=== PATIENT | female | born 2000 | race Caucasian/White ===

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

== ENCOUNTER 2019-03-13 10:17 | Emergency (ER) | payer BC, OTHER ==
[~2019-03-13] VITALS: Ht 160 cm; Wt 59.1 kg
[2019-03-13 11:11] VITALS: BP 120/70
== END 2019-03-13 11:50 | disposition home or self-care (01) ==
LOC: EMS 10:20
DX: S03.41XA Sprain of jaw, right side, initial encounter (principal); X58.XXXA Exposure to other specified factors, initial encounter; Y93.89 Activity, other specified; Y92.89 Other specified places as the place of occurrence of the external cause; Y99.8 Other external cause status

== ENCOUNTER 2019-11-12 22:58 | Emergency (ER) | payer OTHER ==
[~2019-11-12] VITALS: Ht 160 cm; Wt 59.1 kg
[2019-11-13 00:34] LABS: BASOPHILS % (AUTO) 0.4 % (0.0-2.0); EOSINOPHILS % (AUTO) 0.2 % (1.0-6.0); HEMATOCRIT 31.7 % (36-46); HEMOGLOBIN 10.7 g/dL (12.0-16.0); LYMPHOCYTES # (AUTO) 1.6 K/uL (1.0-4.8); LYMPHOCYTES % (AUTO) 15.9 % (22.0-44.0); MEAN CORPUSCULAR HEMOGLOBIN 27.9 pg (26.0-34.0); MEAN CORPUSCULAR HGB CONC 33.8 G/dL (31.0-37.0); MEAN CORPUSCULAR VOLUME 83 fL (80-100); MONOCYTES # (AUTO) 0.4 K/uL (0.1-1.0); MONOCYTES % (AUTO) 4.5 % (2.0-9.0); NEUTROPHILS # (AUTO) 7.9 K/uL (1.8-7.7); PLATELET COUNT (AUTO) 306 K/uL (150-450); RED BLOOD CELL COUNT(AUTO) 3.84 MIL/uL (4.00-5.20); RED CELL DISTRIBUTION WIDTH 15.2 % (11.5-14.5)
[2019-11-13 00:44] LABS: ANION GAP 8 mmol/L (8-16); CALCIUM, TOTAL 8.8 mg/dL (8.8-10.5); CARBON DIOXIDE 28 mmol/L (22-29); CHLORIDE 104 mmol/L (98-107); CREATININE 0.68 mg/dL (0.60-1.30); GLOMERULAR FILTR. RATE CALC > 60 mL/min (>60); GLUCOSE,RANDOM 99 mg/dL (70-110); POTASSIUM 4.1 mmol/L (3.5-5.1); SODIUM SERUM 140 mmol/L (136-145); UREA NITROGEN, BLOOD 13 mg/dL (7-18)
[2019-11-13 00:55] LABS: ALANINE AMINOTRANSFERASE 18 U/L (12-78); ALKALINE PHOSPHATASE 59 U/L (46-116); ASPARTATE AMINOTRANSFERASE 13 U/L (15-37); BILIRUBIN,TOTAL 0.1 mg/dL (0.1-1.0); HCG,QUANTITATIVE 467 mIU/mL (0-6); LIPASE 131 U/L (73-393); TOTAL PROTEIN, SERUM 7.9 g/dL (6.4-8.2)
[2019-11-13] MEDS ORDERED: FERR-89 PO (01:15)
[2019-11-13] MEDS ORDERED: MECL25TA39 PO (01:17)
[2019-11-13] MEDS ORDERED: IBUP-2071 PO (01:17)
[2019-11-13] MEDS ORDERED: MISO100T47 PO (01:17)
[2019-11-13 02:20] VITALS: BP 105/65
== END 2019-11-13 02:30 | disposition home or self-care (01) ==
LOC: EMS 22:59
DX: N93.9 Abnormal uterine and vaginal bleeding, unspecified (principal)
CPT/HCPCS: 76830; 76856

== ENCOUNTER 2019-12-08 22:07 | Emergency (ER) | payer OTHER ==
[~2019-12-08] VITALS: Ht 160 cm; Wt 63.6 kg
[~2019-12-08 22:07] MED LIST: FERR-89 PO; IBUP-2071 PO; MECL25TA39 PO; MISO100T47 PO
[2019-12-08 22:59] LABS: BASOPHILS % (AUTO) 0.4 % (0.0-2.0); EOSINOPHILS % (AUTO) 0.9 % (1.0-6.0); HEMATOCRIT 31.9 % (36-46); HEMOGLOBIN 10.2 g/dL (12.0-16.0); LYMPHOCYTES # (AUTO) 2.3 K/uL (1.0-4.8); LYMPHOCYTES % (AUTO) 24.1 % (22.0-44.0); MEAN CORPUSCULAR HEMOGLOBIN 25.8 pg (26.0-34.0); MEAN CORPUSCULAR VOLUME 81 fL (80-100); MONOCYTES # (AUTO) 0.7 K/uL (0.1-1.0); MONOCYTES % (AUTO) 7.8 % (2.0-9.0); NEUTROPHILS # (AUTO) 6.3 K/uL (1.8-7.7); NEUTROPHILS % (AUTO) 66.8 % (40.0-70.0); PLATELET COUNT (AUTO) 321 K/uL (150-450); RED BLOOD CELL COUNT(AUTO) 3.96 MIL/uL (4.00-5.20); RED CELL DISTRIBUTION WIDTH 15.2 % (11.5-14.5)
[2019-12-08 23:09] LABS: ANION GAP 10 mmol/L (8-16); CALCIUM, TOTAL 8.9 mg/dL (8.8-10.5); CARBON DIOXIDE 29 mmol/L (22-29); CHLORIDE 105 mmol/L (98-107); CREATININE 0.88 mg/dL (0.60-1.30); GLOMERULAR FILTR. RATE CALC > 60 mL/min (>60); GLUCOSE,RANDOM 89 mg/dL (70-110); POTASSIUM 4.2 mmol/L (3.5-5.1); SODIUM SERUM 144 mmol/L (136-145); UREA NITROGEN, BLOOD 14 mg/dL (7-18)
[2019-12-08 23:21] LABS: ALANINE AMINOTRANSFERASE 15 U/L (12-78); ALBUMIN 4.2 g/dL (3.4-5.0); ALKALINE PHOSPHATASE 63 U/L (46-116); ASPARTATE AMINOTRANSFERASE 11 U/L (15-37); BILIRUBIN,TOTAL 0.2 mg/dL (0.1-1.0); HCG,QUANTITATIVE 2 mIU/mL (0-6); TOTAL PROTEIN, SERUM 8.3 g/dL (6.4-8.2)
[2019-12-09 02:10] VITALS: BP 105/58
== END 2019-12-09 02:27 | disposition home or self-care (01) ==
LOC: EMS 22:07
DX: D64.9 Anemia, unspecified (principal); R55 Syncope and collapse; F12.90 Cannabis use, unspecified, uncomplicated
CPT/HCPCS: 70450; 72125; 93005; 36415-L1; 36415-TC; 71045-TC

== ENCOUNTER 2021-01-05 17:53 | Emergency (ER) | payer OTHER ==
[~2021-01-05] VITALS: Ht 160 cm; Wt 59.1 kg
[~2021-01-05 17:53] MED LIST changes: +MISO100T42 PO; -MISO100T47 PO
[2021-01-05] MEDS ORDERED: DEXAMETHASONE 4 MG TABLET PO ONE (19:45)
[2021-01-05] MEDS ORDERED: ACETAMINOPHEN 325 MG TABLET PO ONE (19:45)
[2021-01-05] MEDS ORDERED: MAALOX/LIDOCAINE/NYSTATIN SUSP 5 ML ORAL.SYG MM ONE (19:45)
[2021-01-05 19:49] LABS: COVID AG,FIA SOURCE NASOPHARYNGEAL
[2021-01-05 21:05] VITALS: BP 129/74
== END 2021-01-05 21:05 | disposition home or self-care (01) ==
LOC: EMS 17:56
DX: J02.9 Acute pharyngitis, unspecified (principal); R50.9 Fever, unspecified; F12.90 Cannabis use, unspecified, uncomplicated; Z20.822 Contact with and (suspected) exposure to COVID-19
CPT/HCPCS: 87426; 87430; 99284; J8540; 99283

== ENCOUNTER 2022-03-24 15:52 | Emergency (ER) | payer OTHER ==
[~2022-03-24] VITALS: Ht 160 cm; Wt 65.0 kg
[~2022-03-24 15:52] MED LIST changes: -FERR-89 PO; +FERR325T27 PO
[2022-03-24 17:27] LABS: APPEARANCE,URINE CLEAR (CLEAR); BILIRUBIN,URINE NEGATIVE (NEGATIVE); GLUCOSE, URINE (UA) NEGATIVE (NEGATIVE); KETONES,URINE NEGATIVE (NEGATIVE); LEUKOCYTE ESTERASE ,URINE TRACE (NEGATIVE); NITRATE,URINE NEGATIVE (NEGATIVE); OCCULT BLOOD,URINE TRACE (NEGATIVE); PH,URINE 6.5 (5.0-8.0); PROTEIN,URINE NEGATIVE (NEGATIVE); SPECIFIC GRAVITIY, URINE 1.002 (1.003-1.030); UROBILINOGEN,URINE <=1.0 mg/dL (<=1.0)
[2022-03-24 17:51] LABS: BACTERIA,URINE Moderate /HPF (None Seen); SQUAMOUS EPITHELIAL CELL,UR Few /LPF (None Seen)
[2022-03-24] MEDS ORDERED: METR500 PO (19:17)
[2022-03-24 19:48] VITALS: BP 127/83
== END 2022-03-24 19:50 | disposition home or self-care (01) ==
LOC: EMS 15:52
DX: N76.0 Acute vaginitis (principal)
CPT/HCPCS: 81001; 84703; 87086; 87186; 87210; 87491; 87591; 99283

== ENCOUNTER 2023-01-09 17:04 | Emergency (ER) | payer OTHER ==
[~2023-01-09] VITALS: Ht 160 cm; Wt 74.1 kg
[~2023-01-09 17:04] MED LIST changes: +IBUP-1493 PO; -IBUP-2071 PO; +METR500 PO; -MISO100T42 PO; +[UNRECOGNIZED DRUG - CODE] PO
[2023-01-09 17:07] VITALS: BP 103/63; PULSE 91; RESP 15; TEMP 98.5
[2023-01-09 17:24] LABS: APPEARANCE,URINE HAZY (CLEAR); BILIRUBIN,URINE NEGATIVE (NEGATIVE); GLUCOSE, URINE (UA) NEGATIVE (NEGATIVE); KETONES,URINE NEGATIVE (NEGATIVE); LEUKOCYTE ESTERASE ,URINE LARGE (NEGATIVE); NITRATE,URINE NEGATIVE (NEGATIVE); OCCULT BLOOD,URINE MODERATE (NEGATIVE); PROTEIN,URINE TRACE mg/dL (NEGATIVE); SPECIFIC GRAVITIY, URINE 1.031 (1.003-1.030); UROBILINOGEN,URINE <=1.0 mg/dL (<=1.0)
[2023-01-09 17:57] LABS: SQUAMOUS EPITHELIAL CELL,UR Few /LPF (None Seen); WBC,URINE 26-50 /HPF (0-5)
[2023-01-09 17:58] LABS: BACTERIA,URINE Moderate /HPF (None Seen)
== END 2023-01-09 20:11 | disposition home or self-care (01) ==
LOC: EMS 17:06
DX: N39.0 Urinary tract infection, site not specified (principal)
CPT/HCPCS: 81001; 87086; 87186; 99283

== ENCOUNTER 2023-10-10 21:39 | Emergency (ER) | payer OTHER ==
[~2023-10-10] VITALS: Ht 160 cm; Wt 171.4 kg
[~2023-10-10 21:39] MED LIST changes: -FERR325T27 PO; -MECL25TA39 PO; -METR500 PO; -[UNRECOGNIZED DRUG - CODE] PO
[2023-10-10 21:53] VITALS: BP 95/48; PULSE 129; RESP 16; TEMP 97.7
[2023-10-10] MEDS: SODIUM CHLORIDE 0.9% 1,000 ML IV ONE (22:18)
[2023-10-10 22:26] LABS: BASOPHILS % (AUTO) 0.4 % (0.0-2.0); EOSINOPHILS % (AUTO) 0.1 % (1.0-6.0); HEMATOCRIT 43.1 % (36-46); HEMOGLOBIN 14.3 g/dL (12.0-16.0); LYMPHOCYTES # (AUTO) 1.6 K/uL (1.0-4.8); LYMPHOCYTES % (AUTO) 13.6 % (22.0-44.0); MEAN CORPUSCULAR HEMOGLOBIN 28.9 pg (26.0-34.0); MEAN CORPUSCULAR HGB CONC 33.2 G/dL (31.0-37.0); MEAN CORPUSCULAR VOLUME 87 fL (80-100); MONOCYTES # (AUTO) 0.6 K/uL (0.1-1.0); MONOCYTES % (AUTO) 4.9 % (2.0-9.0); NEUTROPHILS # (AUTO) 9.6 K/uL (1.8-7.7); PLATELET COUNT (AUTO) 404 K/uL (150-450); RED BLOOD CELL COUNT(AUTO) 4.95 MIL/uL (4.00-5.20); WHITE BLOOD COUNT (AUTO) 11.8 K/uL (4.5-11.0)
[2023-10-10 22:42] LABS: ANION GAP 14 mmol/L (8-16); CALCIUM, TOTAL 9.2 mg/dL (8.8-10.5); CARBON DIOXIDE 23 mmol/L (22-29); CHLORIDE 104 mmol/L (98-107); CREATININE 0.91 mg/dL (0.60-1.30); GLOMERULAR FILTR. RATE CALC > 60 mL/min (>60); GLUCOSE,RANDOM 143 mg/dL (70-110); POTASSIUM 3.5 mmol/L (3.5-5.1); SODIUM SERUM 141 mmol/L (136-145); UREA NITROGEN, BLOOD 8 mg/dL (7-18)
[2023-10-10] MEDS: ONDANSETRON HCL 4 MG/2 ML VIAL IVP ONE (22:48)
[2023-10-10 22:54] LABS: ALANINE AMINOTRANSFERASE 25 U/L (12-78); ALBUMIN 4.7 g/dL (3.4-5.0); ALKALINE PHOSPHATASE 87 U/L (46-116); ASPARTATE AMINOTRANSFERASE 19 U/L (15-37); BILIRUBIN,TOTAL 0.5 mg/dL (0.1-1.0); HCG,QUANTITATIVE < 1 mIU/mL (0-6); LIPASE 24 U/L (16-77); TOTAL PROTEIN, SERUM 9.3 g/dL (6.4-8.2)
[2023-10-11] LABS: ALCOHOL, BLOOD (SERUM) < 3 mg/dL (0-10)
[2023-10-11] MEDS ORDERED: ONDA-104 PO (00:05)
== END 2023-10-11 00:57 | disposition home or self-care (01) ==
LOC: EMS 21:41
DX: F10.129 Alcohol abuse with intoxication, unspecified (principal)
CPT/HCPCS: 99283; 96374; 96361; 80053; 83690; 84702; 85025; 36415; G0480; J2405; J7030

== ENCOUNTER 2024-09-14 15:24 | Emergency (ER) | payer OTHER ==
[~2024-09-14] VITALS: Ht 167.6 cm; Wt 95.5 kg
[~2024-09-14 15:24] MED LIST changes: +ONDA-104 PO
[2024-09-14 15:31] VITALS: TEMP 98.2
[2024-09-14] MEDS: KETOROLAC TROMETHAMINE 30 MG/ML VIAL IM ONE (20:40)
[2024-09-14] MEDS: ACETAMINOPHEN 500 MG TABLET PO ONE (20:40)
[2024-09-14] MEDS: LIDOCAINE 5% TRANSDERMAL PATCH TD ONE (20:40)
[2024-09-14 22:20] VITALS: BP 136/80; PULSE 69; RESP 18; O2SAT 98
[2024-09-14] MEDS ORDERED: LIDO700A15 TP (22:23)
== END 2024-09-14 22:45 | disposition home or self-care (01) ==
LOC: EMS 15:24
DX: M25.561 Pain in right knee (principal)
CPT/HCPCS: 99283; 73562; 96372; J1885

== ENCOUNTER 2024-12-06 16:40 | Emergency (ER) | payer MEDICAID, OTHER ==
[~2024-12-06] VITALS: Ht 160 cm; Wt 86.8 kg
[~2024-12-06 16:40] MED LIST changes: +LIDO-57 TP
[2024-12-06 16:48] VITALS: TEMP 97.9
[2024-12-06] MEDS ORDERED: IBUP-1493 PO (20:31)
[2024-12-06] MEDS: IBUPROFEN 800 MG TABLET PO ONE (20:35)
[2024-12-06 20:45] VITALS: BP 111/67; PULSE 83; RESP 18; O2SAT 99
== END 2024-12-06 20:51 | disposition home or self-care (01) ==
LOC: EMS 16:41
DX: M19.90 Unspecified osteoarthritis, unspecified site (principal)
CPT/HCPCS: 99283

== ENCOUNTER 2025-01-12 13:12 | Emergency (ER) | payer MEDICAID, OTHER ==
[~2025-01-12] VITALS: Ht 160 cm; Wt 86.4 kg
[~2025-01-12 13:12] MED LIST changes: -LIDO-57 TP; -ONDA-104 PO
[2025-01-12 13:16] VITALS: TEMP 98
[2025-01-12] MEDS ORDERED: ETON68IM4 SD (13:19)
[2025-01-12 14:30] LABS: PLATELET COUNT (AUTO) 334 K/uL (150-450); RED BLOOD CELL COUNT(AUTO) 4.43 MIL/uL (4.00-5.20); RED CELL DISTRIBUTION WIDTH 13.5 % (11.5-14.5); WHITE BLOOD COUNT (AUTO) 8.8 K/uL (4.5-11.0)
[2025-01-12 14:37] LABS: CALCIUM, TOTAL 8.6 mg/dL (8.8-10.5); CREATININE 0.67 mg/dL (0.60-1.30); GLOMERULAR FILTR. RATE CALC > 60 mL/min (>60); GLUCOSE,RANDOM 86 mg/dL (70-110); SODIUM SERUM 136 mmol/L (136-145); UREA NITROGEN, BLOOD 12 mg/dL (7-18)
[2025-01-12 14:42] LABS: ASPARTATE AMINOTRANSFERASE 17 U/L (15-37); PREGNANCY RESULT, SERUM NEGATIVE (NEGATIVE); TOTAL PROTEIN, SERUM 7.7 g/dL (6.4-8.2)
[2025-01-12 14:56] LABS: APPEARANCE,URINE CLEAR (CLEAR); GLUCOSE, URINE (UA) NEGATIVE (NEGATIVE); LEUKOCYTE ESTERASE ,URINE TRACE (NEGATIVE); NITRATE,URINE NEGATIVE (NEGATIVE); OCCULT BLOOD,URINE SMALL (NEGATIVE); SPECIFIC GRAVITIY, URINE 1.015 (1.003-1.030)
[2025-01-12 15:00] LABS: SQUAMOUS EPITHELIAL CELL,UR Few /LPF (None Seen)
[2025-01-12] MEDS: CefTRIAXone SODIUM 1 GM/VIAL IM ONE (15:23)
[2025-01-12] MEDS: DOXYCYCLINE HYCLATE 100 MG TABLET PO ONE (15:23)
[2025-01-12] MEDS: LIDOCAINE/PF 1% 2 ML VIAL IM ONE (15:23)
[2025-01-12] MEDS ORDERED: DOXY-354 PO (15:53)
[2025-01-12 16:07] VITALS: BP 125/85; PULSE 95; RESP 18; O2SAT 99
== END 2025-01-12 16:08 | disposition home or self-care (01) ==
LOC: EMS 13:15
DX: N89.8 Other specified noninflammatory disorders of vagina (principal); R30.0 Dysuria; M19.90 Unspecified osteoarthritis, unspecified site; Z29.9 Encounter for prophylactic measures, unspecified; Z79.899 Other long term (current) drug therapy
CPT/HCPCS: 99283; 86592; 80053; 81001; 85025; 87210; 36415; 87491; 87591; 96372; 87389; 84703; J0696; J3490

== ENCOUNTER 2025-05-24 11:13 | Emergency (ER) | payer OTHER ==
[~2025-05-24] VITALS: Ht 160 cm; Wt 81.8 kg
[~2025-05-24 11:13] MED LIST changes: +DOXY-354 PO; +ETON68IM4 SD
[2025-05-24 11:21] VITALS: TEMP 98.4
[2025-05-24 12:32] LABS: APPEARANCE,URINE HAZY (CLEAR); GLUCOSE, URINE (UA) NEGATIVE (NEGATIVE); LEUKOCYTE ESTERASE ,URINE LARGE (NEGATIVE); NITRATE,URINE POSITIVE (NEGATIVE); OCCULT BLOOD,URINE MODERATE (NEGATIVE); SPECIFIC GRAVITIY, URINE 1.028 (1.003-1.030)
[2025-05-24 12:33] LABS: HCG,QUAL URINE NEGATIVE (NEGATIVE)
[2025-05-24 12:46] LABS: SQUAMOUS EPITHELIAL CELL,UR Many /LPF (None Seen)
[2025-05-24 13:15] VITALS: BP 121/80; PULSE 89; RESP 18; O2SAT 100
[2025-05-24] MEDS ORDERED: DOXY-354 PO (13:19)
[2025-05-24] MEDS ORDERED: MICO45CR76 VG (13:19)
[2025-05-24] MEDS ORDERED: CEPH-558 PO (13:35)
[2025-05-24] MEDS: CefTRIAXone SODIUM 1 GM/VIAL IM ONE (13:40)
[2025-05-24] MEDS: LIDOCAINE/PF 1% 2 ML VIAL IM ONE (13:41)
== END 2025-05-24 14:10 | disposition home or self-care (01) ==
LOC: EMS 11:13
DX: N39.0 Urinary tract infection, site not specified (principal); F41.9 Anxiety disorder, unspecified; F12.90 Cannabis use, unspecified, uncomplicated; M19.90 Unspecified osteoarthritis, unspecified site; N89.8 Other specified noninflammatory disorders of vagina; R09.81 Nasal congestion; J02.9 Acute pharyngitis, unspecified; Z79.899 Other long term (current) drug therapy
CPT/HCPCS: 81001; 84703; 86592; 87077; 87086; 87186; 87389; 99283